=== PATIENT | female | born 1960 | race Caucasian/White ===

== ENCOUNTER 2020-02-04 14:56 | Emergency (ER) | payer BC, SELFPAY ==
--- NOTE | ~2020-02-04 | CT_ITS ---
EXAMINATION: CT abdomen pelvis wo con DATE: 02/04/2020 19:29 INDICATION: Left flank pain TECHNIQUE: Computed tomography (CT) of the abdomen and pelvis was performed without intravenous contr ast. The dose-length product (DLP) was 194.72 mGy-cm. Automated exposure control and iterative recons truction technique were employed. COMPARISON: 10/12/2017 FINDINGS: The lung bases are clear. The heart size is normal. Bilateral breast implants are noted. Th ere is a small sliding hiatal hernia. The liver, spleen, pancreas, gallbladder, and adrenal glands ar e normal. There is a 2 mm nonobstructing stone of the right kidney lower pole. No left-sided stones a re identified. A 2 mm calcification projecting near the left distal ureter is seen on the comparison CT, consistent with a phlebolith. Multiple additional pelvic phleboliths are noted. There is no free intraperitoneal gas or evidence of bowel obstruction. No pathologically enlarged abdominal or pelvic lymph nodes are identified. A moderate volume of colonic stool is present. There is mild lumbar spond ylosis. IMPRESSION: 1. No CT correlate for the patient's symptoms. 2. Nonobstructing right nephrolithiasis. Reviewed, dictated and finalized at location A.
--- NOTE | ~2020-02-04 | XR_ITS ---
EXAMINATION: XR abdomen/kub 1V INDICATION: Left flank pain TECHNIQUE: Supine views of the abdomen were obtained on 2 radiographs. COMPARISON: None FINDINGS: Multiple pelvic phleboliths are noted. There is a large thymic colonic stool. No dilated lo ops of bowel are evident. The visualized osseous structures are unremarkable. IMPRESSION: 1. No urinary tract calculi identified. 2. Constipation. Reviewed, dictated and finalized at location A.
[2020-02-04 15:00] VITALS: BP 180/77; PULSE 89; RESP 16; TEMP 37.8; O2SAT 100
[2020-02-04 15:21] LABS: Basophils Absolute Auto 0.1 K/mm3 (0.0-0.1); Basophils Percent Auto 0.7 % (0.2-1.2); Eosinophils Absolute Auto 0.1 K/mm3 (0-0.3); Eosinophils Percent Auto 1.8 % (0-4.4); Hematocrit 41.7 % (37.0-47.0); Hemoglobin 14.3 g/dL (12.0-15.0); Immature Granulocyte Absolute 0.01 K/mm3 (0.00-0.031); Immature Granulocyte Percent A 0.1 % (0-0.5); Lymphocytes Absolute Auto 3.27 K/mm3 (0.9-3.2); Lymphocytes Percent Auto 46.4 % (18.3-44.2); Mean Corpuscular HGB Conc 34.3 g/dl (32-36); Mean Corpuscular Hemoglobin 30.8 pg (26-34); Mean Corpuscular Volume 89.7 fl (80-100); Mean Platelet Volume 9.8 fl (7.4-10.4); Monocytes Absolute Auto 0.5 K/mm3 (0.1-0.6); Monocytes Percent Auto 6.4 % (2.6-8.5); Neutrophils Absolute Auto 3.1 K/mm3 (1.3-6.7); Neutrophils Percent Auto 44.6 % (45.5-73.1); Platelet Count Result 346 k/mm3 (150-375); Red Blood Count 4.65 M/mm3 (4.2-5.4); Red Cell Distribution Width 11.9 % (11.5-14.5)
[2020-02-04 15:23] LABS: Add Urine Microscopic? NO; Appearance Urine Clear (Clear); Bilirubin Urine Negative (Negative); Blood Urine Negative (Negative); Color Urine Straw (Yellow); Glucose Urine UA Negative (Negative); Ketones Urine Negative (Negative); Leukocyte Esterase Ur Negative LEU/UL (Negative); Nitrate Urine Negative (Negative); Protein Urine Negative (Negative); Urobilinogen Urine Negative mg/dL (<2.0)
[2020-02-04 15:33] LABS: Specific Grav Ur 1.004 (1.001-1.035)
[2020-02-04 15:36] LABS: Alanine Aminotransferase 21 U/L (4-35); Albumin Level 4.7 g/dL (3.5-5.1); Alkaline Phosphatase 76 U/L (38-126); Aspartate Amino Transferase 32 U/L (14-36); Blood Urea Nitrogen 13 mg/dL (7-17); Calcium 9.6 mg/dL (8.4-10.2); Carbon Dioxide 30 mmol/L (22-30); Chloride 97 mmol/L (98-107); Estimated CRCL calculation 84 ml/min; Estimated Glomerular Filt Rate > 60; Glucose 113 mg/dL (65-105); Lipase 79 U/L (23-300); Potassium 3.6 mmol/L (3.4-5.0); Sodium 134 mmol/L (137-145)
[2020-02-04 18:09] VITALS: BP 150/77; PULSE 64; RESP 20; O2SAT 100
[2020-02-04] MEDS: SODIUM CHLORIDE 0.9% IV 1,000 ML 999 ML IV CONT (18:45)
[2020-02-04 19:52] VITALS: BP 136/72; PULSE 61; RESP 19; O2SAT 100
--- NOTE | 2020-02-04 19:52 | PC.NURSE ---
pt resting on stretcher at this time, no complaints. VS stable,RR even and unlabored. will continue to monitor pt for baseline status changes.
--- NOTE | 2020-02-04 19:53 | ED.ABDPAIN ---
HPI - Abdominal Pain General Chief Complaint: Abdominal Pain Stated Complaint: pain lt upper abd radiating to back Time Seen by Provider: 02/04/20 18:12 Source: patient Mode of arrival: ambulatory Limitations: no limitations History of Present Illness HPI narrative: Patient is a 60-year-old female who presents with pain to the left CVA region that was sharp in nature and intense the onset and has decreased significantly since the beginning this morning patient is resting comfortably in the room upon arrival has not had anything for pain patient denies any fever chills nausea vomiting. . Patient denies URI symptoms and on arrival is resting comfortably in the room in no distress Related Data Allergies Allergy/AdvReac Type Severity Reaction Status Date / Time No Known Allergies Allergy Unknown Verified 10/12/17 13:24 Review of Systems Review of Systems: All systems reviewed & are unremarkable except as noted in HPI and below PMFSH Past Medical History Medical History (Updated 02/04/20 @ 20:01 by Efra Mullen PA-C) Nephrolithiasis Surgical History Surgical History (Updated 02/04/20 @ 19:56 by Efra Mullen PA-C) Previous section Exam Narrative: Exam Narrative: GENERAL: Well-appearing, well-nourished, and in no acute distress. HEAD: Normocephalic, atraumatic. EYES: PERRLA and EOMI. ENT: Nares clear, no rhinorrhea or epistaxis. Mucous membranes moist. CHEST: Clear to auscultation. No respiratory distress. No wheezes rales or rhonchi HEART: Regular rate and rhythm. No murmur heard. Normal peripheral pulses. ABDOMEN: Soft, nontender, nondistended EXTREMITIES: Normal range of motion. No edema. SKIN: Warm, dry, no rash. NEURO: No focal deficits. Alert and oriented x3. Cranial nerves II through XII grossly intact PSYCH: Normal mood and affect. Course Course Emergency Course: Patient in the room aware of case findings treatment plan and diagnosis given fluids and medication with improvement felt appropriate for discharge home Vital Signs Vital signs: Vital Signs Temperature 100.1 F H 02/04/20 15:00 Pulse Rate 89 02/04/20 15:00 Respiratory Rate 16 02/04/20 15:00 Blood Pressure 180/77 H 02/04/20 15:00 Pulse Oximetry 100 02/04/20 15:00 Temperature 100.1 F H 02/04/20 15:00 Pulse Rate 61 02/04/20 19:52 Respiratory Rate 19 02/04/20 19:52 Blood Pressure 136/72 02/04/20 19:52 Pulse Oximetry 100 02/04/20 19:52 MDM - Abdominal Pain MDM Narrative Medical decision making narrative: Patient with left-sided abdominal pain in no distress resting comfortably felt appropriate for outpatient reevaluation agreeing to follow-up as directed or to return if symptoms worsen or concerns. Patient is afebrile nontoxic-appearing in no distress. Lab Data Result diagrams: 02/04/20 15:06 02/04/20 15:06 Labs: Lab Results 02/04/20 02/04/20 02/04/20 Range/Units 15:06 15:06 15:11 WBC 7.0 (4.5-10.0) K/mm3 RBC 4.65 (4.2-5.4) M/mm3 Hgb 14.3 (12.0-15.0) g/dL Hct 41.7 (37.0-47.0) % MCV 89.7 (80-100) fl MCH 30.8 (26-34) pg MCHC 34.3 (32-36) g/dl RDW 11.9 (11.5-14.5) % Plt Count 346 (150-375) k/mm3 MPV 9.8 (7.4-10.4) fl Immature Gran % (Auto) 0.1 (0-0.5) % Neut % (Auto) 44.6 L (45.5-73.1) % Lymph % (Auto) 46.4 H (18.3-44.2) % [place] % (Auto) 6.4 (2.6-8.5) % Eos % (Auto) 1.8 (0-4.4) % Baso % (Auto) 0.7 (0.2-1.2) % Lymph # (Auto) 3.27 H (0.9-3.2) K/mm3 [place] # (Auto) 0.5 (0.1-0.6) K/mm3 Eos # (Auto) 0.1 (0-0.3) K/mm3 Baso # (Auto) 0.1 (0.0-0.1) K/mm3 Abs Immat Gran (auto) 0.01 (0.00-0.031) K/mm3 Absolute Neuts (auto) 3.1 (1.3-6.7) K/mm3 Absolute Nucleated RBC 0.0 (0.0-0.012) K/mm3 Nucleated RBC % 0.0 (0.0-0.2) % Sodium 134 L (137-145) mmol/L Potassium 3.6 (3.4-5.0) mmol/L Chloride 97 L (98-107) mmol/L Carbon Dioxide 30
[2020-02-04 20:15] VITALS: BP 132/79; PULSE 56; RESP 18; TEMP 36.8; O2SAT 100
== END 2020-02-04 20:16 | disposition home or self-care (01) ==
PROVIDERS: Emergency Provider Emergency Medicine
DX: R10.9 Unspecified abdominal pain (principal)
CPT/HCPCS: 36415; 74018; 74176; 80053; 81003; 83690; 85025; 96361; 96374; 99284; J0131; J7030